=== PATIENT | female | born 1990 | race Caucasian/White ===

== ENCOUNTER 2018-04-13 10:29 | Emergency (ER) | payer SELFPAY ==
[2018-04-13 10:41] VITALS: BP 118/62; PULSE 95; TEMP 98.6; BMI 20.3
--- NOTE | 2018-04-13 11:28 | PDOC ---
History of Present Illness - General Chief Complaint: Pain Stated Complaint: BROKEN TEETH Time Seen by Provider: 04/13/18 11:02 History Source: Patient Exam Limitations: No Limitations - History of Present Illness Initial Comments: 04/13/18 11:34 Best Contact: PCP: N/A Pmhx: N/A Pshx: N/A Allergies: NKDA LMP: 03/25/2018 27-year-old female presents to the emergency department complaining of dental pain. Patient states she's had dental problems for the past 2 years. She last saw a dentist 2 months ago and was advised that she needs every tooth extracted but due to financial reasons, she is unable to get it done until April of this year. Patient states the pain is a dull nonradiating intermittent ache without fever, chills, nausea/vomiting. Patient states she is able to eat and drink without much difficulty but her teeth hurts on cold liquids. Past History - Past Medical History Home Medications: Ambulatory Orders Oxycodone HCl/Acetaminophen [Percocet 5-325 mg Tablet] 1 tab PO Q6H #10 tablet MDD 4 04/13/18 Penicillin V Potassium [Pen Vee K -] 500 mg PO TID #21 tablet 04/13/18 COPD: No - Suicide/Smoking/Psychosocial Hx Smoking History: Never smoked Have you smoked in the past 12 months: No Information on smoking cessation initiated: No Hx Alcohol Use: No Drug/Substance Use Hx: No Substance Use Type: None Review of Systems - Review of Systems Able to Perform ROS?: Yes Comments:: 04/13/18 11:32 CONSTITUTIONAL: Absent: fever, chills, diaphoresis, generalized weakness, malaise, loss of appetite HEENT: Absent: rhinorrhea, nasal congestion, throat pain, throat swelling, difficulty swallowing, mouth swelling, ear pain, eye pain, visual Changes + dental pain to ALL teeth SKIN: Absent: rash, itching, pallor HEMATOLOGIC/IMMUNOLOGIC: Absent: easy bleeding, easy bruising, lymphadenopathy, frequent infections ENDOCRINE: Absent: unexplained weight gain, unexplained weight loss, heat intolerance, cold intolerance Is the patient limited [place] proficient: No *Physical Exam - Vital Signs Last Vital Signs Temp Pulse Resp BP Pulse Ox 98.6 F 95 H 18 118/62 100 04/13/18 10:39 04/13/18 10:39 04/13/18 10:39 04/13/18 10:39 04/13/18 10:39 - Physical Exam Comments: 04/13/18 11:33 GENERAL: Well developed, well nourished. Awake and alert. No acute distress. HEENT: Normocephalic, atraumatic. PERRLA, EOMI. No conjunctival pallor. Sclera are non- icteric. Moist mucous membranes. Oropharynx is clear. SKIN: Warm and dry. Normal capillary refill. No rashes. No jaundice. Pt has decay to all her teeth with numerous teeth missing from upper and lower +pain on percussion to remaining teeth neg facial swelling Moderate Sedation - Procedure Monitoring Vital Signs: Vital Signs Temp Pulse Resp BP Pulse Ox 98.6 F 95 H 18 118/62 100 04/13/18 10:39 04/13/18 10:39 04/13/18 10:39 04/13/18 10:39 04/13/18 10:39 *DC/Admit/Observation/Transfer Diagnosis at time of Disposition: Dental decay - Discharge Dispostion Disposition: HOME Condition at time of disposition: Stable Decision to Admit order: No - Prescriptions Prescriptions: Oxycodone HCl/Acetaminophen [Percocet 5-325 mg Tablet] 1 tab PO Q6H #10 tablet MDD 4 Penicillin V Potassium [Pen Vee K -] 500 mg PO TID #21 tablet - Referrals - Patient Instructions Printed Discharge Instructions: DI for Tooth Decay Additional Instructions: Tylenol alternating with Motrin as needed for pain Percocet 5/325 one tablet by mouth every 6 hours as needed for severe pain Pen-Vee K 1 tablet twice a day for the next 10 days Return back to the emergency department for severe/persistent or worsening symptoms You must keep your appointment for your oral surgeon for [place] - Post Discharge Activity
== END 2018-04-13 12:03 | disposition home or self-care (01) ==
LOC: JERFT 10:29
DX: K02.9 Dental caries, unspecified (principal)
CPT/HCPCS: 99281-25